=== PATIENT | female | born 1970 | race Caucasian/White ===

== ENCOUNTER 2018-03-03 09:48 | Observation (INO) | payer MEDICAID ==
[~2018-03-03] VITALS: Ht 160 cm; Wt 65.0 kg
[2018-03-03 10:53] LABS: BASOPHILS # (AUTO) 0.15 x10^3/uL (0-0.1); BASOPHILS % (AUTO) 1 % (0-1); EOSINOPHILS % (AUTO) 1 % (1-7); LYMPHOCYTES # (AUTO) 4.48 x10^3/uL (1-3.4); LYMPHOCYTES % (AUTO) 28 % (22-44); MD NO; MEAN CORPUSCULAR HEMOGLOBIN 31.1 pg (27.0-34.8); MEAN CORPUSCULAR HGB CONC 33.4 g/dL (32.4-35.8); MEAN PLATELET VOLUME 7.1 fL (7.4-10.4); MONOCYTES % (AUTO) 7 % (2-9); NEUTROPHILS # (AUTO) 10.17 x10^3/uL (1.8-6.8); NEUTROPHILS % (AUTO) 63 % (42-75); PLATELET COUNT 574 x10^3/uL (130-400); RED BLOOD COUNT 4.74 x10^6/uL (3.82-5.3); RED CELL DISTRIBUTION WIDTH 13.2 % (9.6-15.2)
[2018-03-03 11:06] LABS: ALBUMIN 3.4 g/dL (3.4-5.0); ANION GAP 12 mmol/L (5-15); CALCIUM 9.2 mg/dL (8.5-10.1); CHLORIDE 111 mmol/L (98-107)
[2018-03-03 11:07] LABS: SALICYLATE LEVEL < 1.7 mg/dL (2.8-20.0)
[2018-03-03 11:09] LABS: HCG UR SG 1.011 (1.003-1.030)
[2018-03-03 11:10] LABS: AMPHETAMINE SCREEN, URINE Positive (Negative); BARBITURATE SCREEN, URINE Negative (Negative); BENZODIAZEPINE SCREEN, URINE Negative (Negative); CANNABINOID SCREEN, URINE Negative (Negative); METHADONE SCREEN, URINE Negative (Negative); OPIATE SCREEN, URINE Negative (Negative)
[2018-03-03 11:10] LABS: ALANINE AMINOTRANSFERASE 21 U/L (12-78); ALKALINE PHOSPHATASE 97 U/L (45-117); BILIRUBIN,TOTAL 0.8 mg/dL (0.2-1.0); CREATININE 0.67 mg/dL (0.55-1.02); TOTAL PROTEIN 7.5 g/dL (6.4-8.2)
[2018-03-03 11:11] LABS: COCAINE SCREEN, URINE Negative (Negative)
[2018-03-03 11:11] LABS: ACETAMINOPHEN < 2 mcg/mL (10-30)
[2018-03-03] MEDS ORDERED: LORazepam 1MG TABLET PO ONE (12:00)
[2018-03-03] MEDS ORDERED: LORazepam 1MG TABLET ONE (12:02)
[2018-03-03] MEDS ORDERED: LIDOCAINE-MPF 1%, 5ML ONE (12:49)
[2018-03-03] MEDS ORDERED: LIDOCAINE 1%, 10ML INFIL ONE (13:00)
[2018-03-03] MEDS ORDERED: CEPHALEXIN 500 MG CAPSULE ONE (13:17)
[2018-03-03] MEDS: CEPHALEXIN 500 MG CAPSULE PO SCH ×2 (13:19→20:38)
[2018-03-03] MEDS ORDERED: DOCUSATE 100 MG CAPSULE PO PRN (17:00)
[2018-03-03] MEDS ORDERED: ACETAMINOPHEN 325 MG TABLET PO PRN (17:00)
[2018-03-03] MEDS ORDERED: HALOPERIDOL 5 MG/ML IM PRN (17:00)
[2018-03-03] MEDS ORDERED: BISACODYL 10 MG SUPP PR PRN (17:00)
[2018-03-03] MEDS ORDERED: ONDANSETRON ODT 4 MG PO PRN (17:00)
[2018-03-03] MEDS ORDERED: POTASSIUM CHLORIDE 20 MEQ TAB.ER.PRT PO ONE (17:00)
[2018-03-03] MEDS ORDERED: POLYETHYLENE GLYCOL 17 GM PACKET PO PRN (17:00)
[2018-03-03 17:30] VITALS: BP 100/58
[2018-03-03 17:51] VITALS: BP 100/58
[2018-03-03 19:07] VITALS: BP 111/61
[2018-03-03] MEDS: SULFAMETH./TRIMETHOPRIM DS 800MG/160MG TABLET PO SCH (20:38)
[2018-03-04] MEDS: CEPHALEXIN 500 MG CAPSULE PO SCH ×3 (01:30→14:37)
[2018-03-04 05:24] LABS: BASOPHILS % (AUTO) 2 % (0-1); EOSINOPHILS # (AUTO) 0.24 x10^3/uL (0-0.4); EOSINOPHILS % (AUTO) 2 % (1-7); LYMPHOCYTES # (AUTO) 3.61 x10^3/uL (1-3.4); LYMPHOCYTES % (AUTO) 28 % (22-44); MD NO; MEAN CORPUSCULAR HEMOGLOBIN 31.2 pg (27.0-34.8); MEAN CORPUSCULAR VOLUME 94.5 fL (80-100); MEAN PLATELET VOLUME 7.5 fL (7.4-10.4); MONOCYTES # (AUTO) 1.37 x10^3/uL (0.2-0.8); MONOCYTES % (AUTO) 11 % (2-9); NEUTROPHILS # (AUTO) 7.67 x10^3/uL (1.8-6.8); NEUTROPHILS % (AUTO) 59 % (42-75); PLATELET COUNT 574 x10^3/uL (130-400); RED CELL DISTRIBUTION WIDTH 13.3 % (9.6-15.2)
[2018-03-04 05:25] LABS: ANION GAP 6 mmol/L (5-15); CHLORIDE 112 mmol/L (98-107)
[2018-03-04 05:26] LABS: CREATININE 0.64 mg/dL (0.55-1.02)
[2018-03-04] MEDS ORDERED: HALOPERIDOL 1 MG TABLET PO PRN ×2 (09:30)
[2018-03-04] MEDS ORDERED: ZIPRASIDONE 20 MG INJ IM ONE ×2 (10:00)
[2018-03-04] MEDS: SULFAMETH./TRIMETHOPRIM DS 800MG/160MG TABLET PO SCH ×2 (10:08→21:52)
[2018-03-04] MEDS ORDERED: HALOPERIDOL 5 MG/ML IM PRN (13:00)
[2018-03-04] MEDS ORDERED: SULFAMETH./TRIMETHOPRIM DS 800MG/160MG TABLET ONE (21:51)
[2018-03-05] MEDS: DIPHENHYDRAMINE 50 MG CAPSULE PO PRN (05:12)
[2018-03-05 05:50] LABS: BASOPHILS # (AUTO) 0.17 x10^3/uL (0-0.1); BASOPHILS % (AUTO) 1 % (0-1); EOSINOPHILS # (AUTO) 0.27 x10^3/uL (0-0.4); EOSINOPHILS % (AUTO) 2 % (1-7); LYMPHOCYTES # (AUTO) 2.98 x10^3/uL (1-3.4); LYMPHOCYTES % (AUTO) 25 % (22-44); MD NO; MEAN CORPUSCULAR HEMOGLOBIN 31.7 pg (27.0-34.8); MEAN CORPUSCULAR HGB CONC 33.3 g/dL (32.4-35.8); MEAN PLATELET VOLUME 7.3 fL (7.4-10.4); MONOCYTES # (AUTO) 1.18 x10^3/uL (0.2-0.8); MONOCYTES % (AUTO) 10 % (2-9); NEUTROPHILS # (AUTO) 7.44 x10^3/uL (1.8-6.8); NEUTROPHILS % (AUTO) 62 % (42-75); PLATELET COUNT 587 x10^3/uL (130-400); RED BLOOD COUNT 4.84 x10^6/uL (3.82-5.3); RED CELL DISTRIBUTION WIDTH 13.9 % (9.6-15.2)
[2018-03-05 06:44] LABS: CHLORIDE 112 mmol/L (98-107)
[2018-03-05 06:49] LABS: ANION GAP 9 mmol/L (5-15); CALCIUM 8.8 mg/dL (8.5-10.1); CREATININE 0.57 mg/dL (0.55-1.02)
[2018-03-05 07:45] VITALS: BP 115/73
[2018-03-05] MEDS: LORazepam 1MG TABLET PO PRN ×2 (08:55→18:41)
[2018-03-05] MEDS: SULFAMETH./TRIMETHOPRIM DS 800MG/160MG TABLET PO SCH ×2 (08:55→21:33)
[2018-03-05 09:49] VITALS: BP 126/77
[2018-03-05 21:35] VITALS: BP 106/77
[2018-03-06] MEDS: LORazepam 1MG TABLET PO PRN ×2 (07:51→13:03)
[2018-03-06] MEDS: SULFAMETH./TRIMETHOPRIM DS 800MG/160MG TABLET PO SCH (07:51)
[2018-03-06 11:43] VITALS: BP 106/68
[2018-03-06] MEDS: DIPHENHYDRAMINE 50 MG CAPSULE PO PRN (13:05)
[2018-03-06] MEDS ORDERED: SULF-169 PO (13:20)
== END 2018-03-06 14:00 ==
LOC: EDBD 09:48 → MERGE 09:48 → ED 12:21 → EDIP 16:17 → 2N 17:18
PROVIDERS: ADMIT Hospitalist; ATTEND Hospitalist
DX: L02.811 Cutaneous abscess of head [any part, except face] (principal); F29 Unspecified psychosis not due to a substance or known physiological condition; D72.829 Elevated white blood cell count, unspecified; E87.6 Hypokalemia; F19.10 Other psychoactive substance abuse, uncomplicated; F20.9 Schizophrenia, unspecified; Z91.14 Patient's other noncompliance with medication regimen
CPT/HCPCS: 10061; 36415; 80048; 80053; 80307; 80329; 81025; 85025; 96372; 99285; G0378; J3486; J3490; G0480